=== PATIENT | female | born 1935 | race African-American/Black ===

== ENCOUNTER 2021-03-20 03:59 | Emergency (ER) | payer MEDICARE ==
[~2021-03-20] VITALS: Ht 177.8 cm; Wt 110.0 kg
--- NOTE | 2021-03-20 04:34 | RAD ---
XR CHEST 1V 03/20/2021 4:03 AM INDICATION: Right shoulder pain COMPARISON: None available TECHNIQUE: Portable frontal view of the chest is provided. FINDINGS: The cardiomediastinal silhouette is within normal limits. Lungs are clear. Left chest wall cardiac de vice is identified with leads projecting over the right atrium and right ventricle. Median sternotomy changes are present. There are no significant pleural effusions. There is no pulmonary vascular congestion. No pneumothora x. Bilateral glenohumeral osteoarthrosis. IMPRESSION: There is no acute cardiopulmonary process. Electronically signed by: Elsa Lyon MD (03/20/2021 4:32 AM) [facility]
--- NOTE | 2021-03-20 04:35 | RAD ---
XR SHOULDER 2+ VIEWS BILAT 03/20/2021 4:03 AM INDICATION: Right greater than left pain COMPARISON: None available. TECHNIQUE: 2 views the right and 2 views of the left shoulder are provided. FINDINGS/ IMPRESSION: There is no acute fracture or dislocation. Severe osteoarthrosis of the glenohumeral joints, right gr eater than left with joint space narrowing, marginal osteophytosis and subcortical sclerosis. Superio r migration of the humeral heads may reflect chronic rotator cuff arthropathy. Left chest wall cardia c device is partially profiled. Median sternotomy changes are present.. Bone mineralization is within normal limits. Regional soft tissues are within normal limits. There is no soft tissue gas or osseou s erosion. No radiopaque foreign body. Electronically signed by: Elsa Lyon MD (03/20/2021 4:33 AM) JONNY
--- NOTE | 2021-03-20 04:38 | RAD ---
PQRS Compliance Statement: One or more of the following individualized dose reduction techniques were utilized for this examinat ion: 1. Automated exposure control 2. Adjustment of the mA and/or kV according to patient size 3. Use of iterative reconstruction technique CT head and cervical spine without contrast 03/20/2021 4:06 AM INDICATION: Fall from wheelchair COMPARISON: None available TECHNIQUE: Multiple axial CT images of the head were obtained from skull base through the vertex with out intravenous contrast. Multiple axial CT images of the cervical spine were obtained without intrav enous contrast. Coronal and sagittal reformats are provided. FINDINGS: Head: Ventricles, sulci and basal cisterns are within normal limits. There is no hydrocephalus. Puentes-white matter differentiation is normal. There is no acute intracranial hemorrhage. There is no mass, mass e ffect or midline shift. Posterior fossa is normal in appearance. Focal hypoattenuation the posterior left basal ganglia favors remote ischemic changes. Low-attenuation in the periventricular white matte r is suggestive of chronic small vessel ischemic changes. Visualized portions of the orbits are normal with exception of bilateral lens replacement. Paranasal sinuses are well aerated. Mastoid air cells are well aerated. Scalp and calvaria are normal. Cervical spine: 2 mm retrolisthesis of C4 on C5 and C5 on C6. Skull base is intact. Craniocervical junction is normal in appearance. Atlantoaxial articulation is normal. Vertebral body heights are maintained without evidence for acute fracture. Moderate disc height loss at C4-C5, C5-C6 and C6-C7. At C4-C5, there is a posterior disc osteophyte c omplex with moderate facet and uncovertebral joint disease resulting in moderate bilateral neuroforam inal stenosis and mild osseous spinal canal stenosis. At C5-C6, there is a posterior disc osteophyte complex with mild facet arthropathy and moderate uncovertebral joint disease resulting in moderate se tri right and moderate left neural foraminal stenosis and mild to moderate osseous spinal canal sten osis. At C6-C7, there is a posterior discussed by complex with mild facet moderate to advanced uncove rtebral joint disease resulting in severe left and moderate right neural foraminal stenosis and mild to moderate osseous spinal canal stenosis. Transverse foramen are intact. There is no prevertebral soft tissue swelling. Thyroid gland is normal in appearance. Visualized port ions of the lung apices are normal without evidence for suspicious pulmonary nodule or infiltrate. At herosclerotic calcifications of the carotid bifurcations. IMPRESSION: 1. No acute intracranial hemorrhage. Remote ischemic changes identified in the posterior left basal g ang[place]. Low-attenuation in the periventricular white matter is suggestive of chronic small vessel isc hemic changes. 2. No acute fracture or malalignment of the cervical spine. Electronically signed by: Elsa Lyon MD (03/20/2021 4:36 AM) [facility]
--- NOTE | 2021-03-20 04:51 | PHYS DOC ---
General Adult EDM: Chief Complaint: UPPER EXTREMITY PAIN HPI: HPI: 85 yo F PMH CAD w/CABG, CKD, HTN, HLD, hypothyroidism, DM, h/o covid and asthma, presents to the ED from [facility] with c/o bilateral shoulder pain, right shoulder worse than left. EMS brandi lee reported there was no trauma but [facility] called back and reported that patient had slapped wheelchair. Patient did not lose consciousness or hit her head. Patient is on any blood thinners. Patient is alert and oriented x3 and states her shoulder pain is chronic. Took 1 hydrocodone/apap prior to arrival. (NIKKI DAVIS DO) Review of Systems: Review of Systems: Constitutional: Denies fever or chills. [] Eyes: Denies change in visual acuity. [] HENT: Denies nasal congestion or sore throat. [] Respiratory: Denies cough or shortness of breath. [] Cardiovascular: Denies chest pain or edema. [] GI: Denies abdominal pain, nausea, vomiting, bloody stools or diarrhea. [] : Denies continence or saddle anesthesia Musculoskeletal: Denies back pain or flank pain. [] Integument: Denies rash or diaphoresis Neurologic: Denies headache or neck pain Endocrine: Denies polyuria or polydipsia. [] Lymphatic: Denies swollen glands. [] Psychiatric: Denies depression or anxiety. [] (NIKKI DAVIS DO) Heart Score: C/O Chest Pain: No Risk Factors: Risk Factors: DM, Current or recent (<one month) smoker, HTN, HLP, family h istory of CAD, obesity. Risk Scores: Score 0 - 3: 2.5% MACE over next 6 weeks - Discharge Home Score 4 - 6: 20.3% MACE over next 6 weeks - Admit for Clinical Observation Score 7 - 10: 72.7% MACE over next 6 weeks - Early Invasive Strategies (NIKKI DAVIS DO) Physical Exam: PE: Constitutional: no acute distress at rest-pain in shoulder when moving to ed bed, non-toxic appearance. HENT: Normocephalic, atraumatic, Eyes: PERRLA, EOMI, miotic pupils, conjunctiva normal, no discharge. Neck: Normal range of motion, supple, Nexus C-spine criteria are negative: Th ere is no post midline tenderness, the patient is not intoxicated, there is a normal level of alertness, there are no focal neurologic deficits and there are no distracting injuries Cardiovascular: S1/2 present, regular rhythm Lungs & Thorax: Speaking in full sentences, bilateral equal chest rise, no tachypnea or increased work of breathing Abdomen: soft, no tenderness, Skin: Warm, dry, no erythema, no rash. [] Back: No midline step offs or tenderness, no CVA tenderness. [] Extremities: No tenderness, no cyanosis, no lower extremity edema Neurologic: GCS15, Alert and oriented X 3, normal motor function, normal sensory function, no focal deficits noted. [] Psychologic: Affect normal, calm mood (NIKKI DAVIS DO) EKG: EK Sinus rhythm 65 bpm, left axis deviation, QTC 488, QRS 124, T wave inversion lead III, V2, V3, V4, V5, V6, no ST elevation ST depression (NIKKI DAVIS DO) Radiology/Procedures: Radiology/Procedures: IMAGING REPORT Signed PATIENT: MILAGRO ATKINS ACCOUNT: [id number] : 1935 LOCATION: ER AGE: 85 SEX: F EXAM STATUS: PRE ER ORD. PHYSICIAN: NIKKI DVAIS DO REASON: fall from wheelchair PROCEDURE: CT HEAD AND CERVICAL SPINE WO PQRS Compliance Statement: One or more of the following individualized dose reduction techniques were utilized for this examination: 1. Automated exposure control 2. Adjustment of the mA and/or kV according to patient size 3. Use of iterative reconstruction technique CT head and cervical spine without contrast 03/20/2021 4:06 AM INDICATION: Fall from wheelchair COMPARISON: None available TECHNIQUE: Multiple axial CT images of the head were obtained from skull base through the vertex without intravenous contrast. Multiple axial CT images of the cervical spine were obtained without intravenous contrast. Coronal and sagittal reformats are provided. FINDINGS: Head: Ventricles, sulci and basal cisterns are within normal limits. There is no hydrocephalus. Puentes-white matter differentiation is normal. There is no acute intracranial hemorrhage. There is no mass, mass effect or midline shift. Posterior fossa is normal in appearance. Focal hypoattenuation the posterior left basal ganglia favors remote ischemic changes. Low-attenuation in the periventricular white matter is suggestive of chronic small vessel ischemic changes. Visualized portions of the orbits are normal with exception of bilateral lens replacement. Paranasal sinuses are well aerated. Mastoid air cells are well aerated. Scalp and calvaria are normal. Cervical spine: 2 mm retrolisthesis of C4 on C5 and C5 on C6. Skull base is intact. Craniocervical junction is normal in appearance. Atlantoaxial articulation is normal. Vertebral body heights are maintained without evidence for acute fracture. Moderate disc height loss at C4-C5, C5-C6 and C6-C7. At C4-C5, there is a posterior disc osteophyte complex with moderate facet and uncovertebral joint disease resulting in moderate bilateral neuroforaminal stenosis and mild osseous spinal canal stenosis. At C5-C6, there is a posterior disc osteophyte complex with mild facet arthropathy and moderate uncovertebral joint disease resulting in moderate severe right and moderate left neural foraminal stenosis and mild to moderate osseous spinal canal stenosis. At C6-C7, there is a posterior discussed by complex with mild facet moderate to advanced uncovertebral joint disease resulting in severe left and moderate right neural foraminal stenosis and mild to moderate osseous spinal canal stenosis. Transverse foramen are intact. There is no prevertebral soft tissue swelling. Thyroid gland is normal in appearance. Visualized portions of the lung apices are normal without evidence for suspicious pulmonary nodule or infiltrate. Atherosclerotic calcifications of the carotid bifurcations. IMPRESSION: 1. No acute intracranial hemorrhage. Remote ischemic changes identified in the posterior left basal ganglia. Low-attenuation in the periventricular white matter is suggestive of chronic small vessel ischemic changes. 2. No acute fracture or malalignment of the cervical spine. Electronically signed by: Juan A Florentino MD (03/20/2021 4:36 AM) [facility] DICTATED and SIGNED BY: JUAN A FLORENTINO MD DATE: 03/20/21 [id number] IMAGING REPORT Signed PATIENT: MILAGRO ATKINS ACCOUNT: [id number] : 1935 LOCATION: ER AGE: 85 SEX: F EXAM STATUS: PRE ER ORD. PHYSICIAN: NIKKI DAVIS DO REASON: right >> left pain PROCEDURE: SHOULDER BILAT 2+V XR SHOULDER 2+ VIEWS BILAT 03/20/2021 4:03 AM INDICATION: Right greater than left pain COMPARISON: None available. TECHNIQUE: 2 views the right and 2 views of the left shoulder are provided. FINDINGS/ IMPRESSION: There is no acute fracture or dislocation. Severe osteoarthrosis of the glenohumeral joints, right greater than left with joint space narrowing, marginal osteophytosis and subcortical sclerosis. Superior migration of the humeral heads may reflect chronic rotator cuff arthropathy. Left chest wall cardiac device is partially profiled. Median sternotomy changes are present.. Bone mineralization is within normal limits. Regional soft tissues are within normal limits. There is no soft tissue gas or osseous erosion. No radiopaque foreign body. Electronically signed by: Juan A Florentino MD (03/20/2021 4:33 AM) [facility] DI[facility]ATED and SIGNED BY: JUAN A FLORENTINO MD DATE: 03/20/21 [id number] IMAGING REPORT Signed PATIENT: MILAGRO ATKINS ACCOUNT: [id number] : 1935 LOCATION: ER AGE: 85 SEX: F EXAM STATUS: PRE ER ORD. PHYSICIAN: NIKKI DAVIS DO REASON: right shoulder pain PROCEDURE: PORTABLE CHEST 1V XR CHEST 1V 03/20/2021 4:03 AM INDICATION: Right shoulder pain COMPARISON: None available TECHNIQUE: Portable frontal view of the chest is provided. FINDINGS: The cardiomediastinal silhouette is within normal limits. Lungs are clear. Left chest wall cardiac device is identified with leads projecting over the right atrium and right ventricle. Median sternotomy changes are present. There are no significant pleural effusions. There is no pulmonary vascular congestion. No pneumothorax. Bilateral glenohumeral osteoarthrosis. IMPRESSION: There is no acute cardiopulmonary process. Electronically signed by: Juan A Florentino MD (03/20/2021 4:32 AM) [facility] DICTATED and SIGNED BY: JUAN A FLORENTINO MD DATE: 03/20/21 [id number] (NIKKI DAVIS DO) Course & Med Decision Making: Course & Med Decision Making Pertinent Labs and Imaging studies reviewed. (See chart for details) Concern for fall from wheelchair in a well-appearing 85-year-old female. Labs and urinalysis pending. CT imaging and x-rays of both shoulders show no acute trauma. Due to shift change patient was signed out to oncoming physician for further evaluation disposition. ([facility],NIKKI Yun DO) Course & Med Decision Making Laboratory Tests Test 03/20/21 06:42 03/20/21 08:21 White Blood Count 5.5 x10^3/uL (4.0-11.0) Red Blood Count 3.70 x10^6/uL (3.50-5.40) Hemoglobin 10.6 g/dL (12.0-15.5) Hematocrit 32.4 % (36.0-47.0) Mean Corpuscular Volume 88 fL (79-100) Mean Corpuscular Hemoglobin 29 pg (25-35) Mean Corpuscular Hemoglobin Concent 33 g/dL (31-37) Red Cell Distribution Width 13.9 % (11.5-14.5) Platelet Count 130 x10^3/uL (140-400) Neutrophils (%) (Auto) 59 % (31-73) Lymphocytes (%) (Auto) 26 % (24-48) Monocytes (%) (Auto) 10 % (0-9) Eosinophils (%) (Auto) 5 % (0-3) Basophils (%) (Auto) 1 % (0-3) Neutrophils # (Auto) 3.3 x10^3/uL (1.8-7.7) Lymphocytes # (Auto) 1.4 x10^3/uL (1.0-4.8) Monocytes # (Auto) 0.5 x10^3/uL (0.0-1.1) Eosinophils # (Auto) 0.3 x10^3/uL (0.0-0.7) Basophils # (Auto) 0.0 x10^3/uL (0.0-0.2) Sodium Level 137 mmol/L (136-145) Potassium Level 4.3 mmol/L (3.5-5.1) Chloride Level 101 mmol/L (98-107) Carbon Dioxide Level 29 mmol/L (21-32) Anion Gap 7 (6-14) Blood Urea Nitrogen 33 mg/dL (7-20) Creatinine 1.2 mg/dL (0.6-1.0) Estimated GFR (Cockcroft-Gault) 42.9 BUN/Creatinine Ratio 28 (6-20) Glucose Level 224 mg/dL (70-99) Calcium Level 9.7 mg/dL (8.5-10.1) Total Bilirubin 0.5 mg/dL (0.2-1.0) Aspartate Amino Transf (AST/SGOT) 22 U/L (15-37) Alanine Aminotransferase (ALT/SGPT) 41 U/L (14-59) Alkaline Phosphatase 105 U/L (46-116) Troponin I High Sensitivity 11 ng/L (4-50) CL-Uzb-E-Type Natriuretic Peptide 302 pg/mL (0-449) Total Protein 7.7 g/dL (6.4-8.2) Albumin 3.4 g/dL (3.4-5.0) Albumin/Globulin Ratio 0.8 (1.0-1.7) Urine Collection Type U cath Urine Color Yellow Urine Clarity Clear Urine pH 7.0 (<5.0-8.0) Urine Specific [place] 1.010 (1.000-1.030) Urine Protein Negative mg/dL (NEG-TRACE) Urine Glucose (UA) Negative mg/dL (NEG) Urine Ketones (Stick) Negative mg/dL (NEG) Urine Blood Negative (NEG) Urine Nitrite Negative (NEG) Urine Bilirubin Negative (NEG) Urine Urobilinogen Dipstick 1.0 mg/dL (0.2 mg/dL) Urine Leukocyte Esterase Negative (NEG) Urine RBC 0 /HPF (0-2) Urine WBC Rare /HPF (0-4) Urine Squamous Epithelial Cells Occ /LPF Urine Bacteria Few /HPF (0-FEW) 0600: Assumed care from Dr. Davis at this time Patient's current medical course discussed in rounds and patient is currently updated with medical plan Patient updated on lab results as below, she is stable for discharge home. Urine contaminated. She has no further complaints and is resting comfortably and is in no pain clinically. (KAYLENE MADERA DO) Dragon Disclaimer: Dragon Disclaimer: This electronic medical record was generated, in whole or in part, using a voice recognition dictation system. (NIKKI DAVIS DO) Departure Departure Impression: Primary Impression: Fall from wheelchair Additional Impression: Shoulder pain, bilateral NIKKI DAVIS DO Mar 20, 2021 04:51 KAYLENE MADERA DO Mar 20, 2021 09:37
[2021-03-20] MEDS ORDERED: HYDROmorphone 2 MG/ML VIAL IM ONE (06:00)
--- NOTE | 2021-03-20 06:00 | EKG ---
[facility] [address] [place] [address] Test Date: 2021-03-20 Test Time: 04:31:59 Pat Name: MILAGRO ATKINS Department: Room: Gender: F Motor Vehicle Representative: : 1935 Requested By: NIKKI DAVIS Order Number: [id number] Reading MD: Anthony Edgar Measurements Intervals [place] Rate: 65 P: 26 [place]: 184 QRS: -36 QRSD: 124 T: 0 QT: 464 QTc: 488 Interpretive Statements SINUS RHYTHM ABNORMAL LEFT AXIS DEVIATION NON SPECIFIC ST-T WAVE CHANGES ABNORMAL ECG RI6.02 No previous ECG available for comparison Electronically Signed On 03-23-2021 9:41:17 GUM REMOVER by Anthony Edgar
[2021-03-20 06:54] LABS: BASO % 1 % (0-3); EOS # 0.3 x10^3/uL (0.0-0.7); EOS % 5 % (0-3); HEMATOCRIT 32.4 % (36.0-47.0); HEMOGLOBIN 10.6 g/dL (12.0-15.5); LYMPH # 1.4 x10^3/uL (1.0-4.8); LYMPH % 26 % (24-48); MEAN CORPUSCULAR HEMOGLOBIN 29 pg (25-35); MEAN CORPUSCULAR HGB CONC 33 g/dL (31-37); MEAN CORPUSCULAR VOLUME 88 fL (79-100); MONO # 0.5 x10^3/uL (0.0-1.1); MONO % 10 % (0-9); NEUT # 3.3 x10^3/uL (1.8-7.7); NEUT % 59 % (31-73); PLATELET COUNT 130 x10^3/uL (140-400); RED CELL DISTRIBUTION WIDTH 13.9 % (11.5-14.5); WHITE BLOOD COUNT 5.5 x10^3/uL (4.0-11.0)
[2021-03-20 07:03] LABS: CALCIUM 9.7 mg/dL (8.5-10.1); CREATININE 1.2 mg/dL (0.6-1.0); GFR 42.9; POTASSIUM 4.3 mmol/L (3.5-5.1)
[2021-03-20 07:09] LABS: ALBUMIN 3.4 g/dL (3.4-5.0); ALBUMIN/GLOBULIN RATIO 0.8 (1.0-1.7); TOTAL BILIRUBIN 0.5 mg/dL (0.2-1.0); TOTAL PROTEIN 7.7 g/dL (6.4-8.2)
[2021-03-20 08:53] LABS: BILIRUBIN,URINE NEGATIVE (NEG); CLARITY,URINE CLEAR; COLOR,URINE YELLOW; NITRITE,URINE NEGATIVE (NEG); PROTEIN,URINE NEGATIVE (NEG-TRACE)
[2021-03-20 09:10] LABS: BACTERIA,URINE FEW /HPF (0-FEW); RBC,URINE 0 /HPF (0-2); WBC,URINE RARE /HPF (0-4)
[2021-03-20 10:15] VITALS: BP 164/70
== END 2021-03-20 10:42 | disposition home or self-care (01) ==
LOC: ER 03:59
DX: M25.511 Pain in right shoulder (principal); M25.512 Pain in left shoulder; G89.11 Acute pain due to trauma; I12.9 Hypertensive chronic kidney disease with stage 1 through stage 4 chronic kidney disease, or unspecified chronic kidney disease; N18.9 Chronic kidney disease, unspecified; I25.10 Atherosclerotic heart disease of native coronary artery without angina pectoris; E03.9 Hypothyroidism, unspecified; Z95.5 Presence of coronary angioplasty implant and graft; J45.909 Unspecified asthma, uncomplicated; W05.0XXA Fall from non-moving wheelchair, initial encounter; Y93.89 Activity, other specified; Y92.89 Other specified places as the place of occurrence of the external cause; Y99.8 Other external cause status
CPT/HCPCS: 36415; 70450; 71045; 72125; 73030; 80053; 81001; 83880; 84484; 85025; 93005; 96372; 99285; J1170